=== PATIENT | female | born 1955 | race Caucasian/White ===

== ENCOUNTER 2022-05-24 08:21 | Emergency (ER) | payer OTHER ==
[~2022-05-24] VITALS: Wt 77.8 kg
[2022-05-24] MEDS ORDERED: Motrin,Rufen800 MG PO (11:21)
== END 2022-05-24 11:36 | disposition home or self-care (01) ==
LOC: ED 08:21
DX: R51.9 Headache, unspecified (principal); M54.2 Cervicalgia; Z91.041 Radiographic dye allergy status; V89.2XXA Person injured in unspecified motor-vehicle accident, traffic, initial encounter; Y93.89 Activity, other specified; Y92.89 Other specified places as the place of occurrence of the external cause; Y99.8 Other external cause status